=== PATIENT | female | born 1930 | race Caucasian/White ===

== ENCOUNTER 2017-04-01 13:29 | Emergency (ER) | payer MEDICARE, BC ==
[~2017-04-01] VITALS: Ht 165.1 cm; Wt 93.0 kg
[~2017-04-01 13:29] MED LIST: AMLO2.5T PO; ASPI325T PO; BENI20TA25 PO; EFFE75CA PO; LEVO.025 PO; LORTA5 PO; MONT10TA2 PO; Z.0.COMMODE-3:1; Z.0.WALKERFRONT
[2017-04-01 13:39] VITALS: BP 148/74; PULSE 91; RESP 16; TEMP 97.9; O2SAT 95
--- NOTE | 2017-04-01 13:56 | PD ---
HPI Chief Complaint: Fall Time Seen by Provider: 13:55 Travel History International Travel<30 days: No Contact w/Intl Traveler<30days: No Traveled to known affect area: No History of Present Illness HPI 86 YO F presents to the ED via EMS for evaluation after trip and fall. Patient states that she was walking down the driveway, tripped over a flagstone and landed striking her head on the flagstones. She denies loss of consciousness. On visitation she complains of facial pain around the left eye, dull headache, pain in bilateral hands and pain in the right knee. She endorses limitations to range of motion of the fingers secondary to pain. She denies nausea, vomiting, loss of strength, numbness or tingling of the extremities. She is unsure of the date of her last tetanus immunization. She does not take any blood thinners. PFSH Past Medical History Arthritis: Yes Blood Disorders: No Depression: Yes Cancer: No Cardiovascular Problems: No Diabetes: No Diminished Hearing: Yes ([place]) Endocrine: No Genitourinary: No Hepatitis: No Hiatal Hernia: Yes Hypertension: Yes Immune Disorder: No Musculoskeletal: Yes (GOUT/OSTEOARTHRITIS) Neurologic: No Psychiatric: No Reproductive: No Respiratory: No Thyroid Disease: Yes Past Surgical History Abdominal Surgery: Yes (HEMICOLECTOMY, HERNIA, DOMENIC) AICD: No Body Medical Devices: MESH IN ABD WITH TACKS Cardiac Surgery: No Cholecystectomy: Yes Ear Surgery: No Endocrine Surgery: No Eye Surgery: No Genitourinary Surgery: No Gynecologic Surgery: Yes (D AND C X2) Joint Replacement: No Oral Surgery: No Pacemaker: No Thoracic Surgery: No Social History Alcohol Use: No Tobacco Use: No Substance Use: No Allergies-Medications (Allergen,Severity, Reaction): Coded Allergies: Sulfa (Verified Allergy, Mild, Rash, 04/01/17) Reported Meds & Prescriptions Reported Meds & Active Scripts Active Ultram (Tramadol HCl) 50 Mg Tab 50 Mg PO Q8H PRN Reported Effexor XR 24 HR (Venlafaxine HCl) 75 Mg Cap 75 Mg PO DAILY Benicar (Olmesartan) 20 Mg Tab 20 Mg PO DAILY Singulair (Montelukast Sodium) 10 Mg Tab 10 Mg PO HS Levothyroxine (Levothyroxine Sodium) 25 Mcg Tab 25 Mcg PO DAILY Amlodipine (Amlodipine Besylate) 2.5 Mg Tab 2.5 Mg PO DAILY Review of Systems Except as stated in HPI: all other systems reviewed are Neg Physical Exam Exam Limitations: Other: (patient seen in the ambulance hallway, exam limited due to privacy concerns) Narrative GENERAL: Well-nourished, well-developed white female in no acute distress. SKIN: Warm and dry. 3 cm laceration lateral of the left eye. Subcentimeter superficial lacerations over the bridge of the nose. HEAD: Normocephalic. Tender ecchymosis and edema surrounding the left eye. No raccoon eyes or rangel sign. No tenderness to palpation of the skull. No bony step-offs. No malocclusion of the teeth. EYES: No scleral icterus. No injection or drainage. NECK: Supple, trachea midline. No JVD or lymphadenopathy. No midline tenderness to palpation. Patient retains full, active, painless range of motion of the neck. CARDIOVASCULAR: Regular rate and rhythm without murmurs, gallops, or rubs. 2+ radial pulses bilaterally. RESPIRATORY: Breath sounds clear and equal bilaterally. No accessory muscle use. GASTROINTESTINAL: Abdomen soft, non-tender, nondistended. + Bowel sounds MUSCULOSKELETAL: No cyanosis, or edema. Tenderness to palpation of the digits of bilateral hands, worsened with range of motion. Neurovascularly intact. Tenderness to palpation of the anterior aspect of the right knee. Positive patellar balloting. Patient is able to flex and extend the knee, but this elicits pain. NEUROLOGICAL: Awake and alert. Cranial nerves II through XII intact. Motor and sensory grossly within normal limits. 5/5 muscle strength in all muscle groups. Normal speech. BACK: Nontender without obvious deformity. No CVA tenderness. No midline tenderness. Data Data Last Documented VS Vital Signs Date Time Temp Pulse Resp B/P Pulse Ox O2 Delivery O2 Flow Rate FiO2 04/01/17 15:36 74 18 95 Room Air 04/01/17 15:31 97.9 142/[address] Brain W/O Iv Contrast(Rout) (04/01/17 14:10) Ct Cerv Spine W/O Contrast (04/01/17 14:10) Ct Facial Bones W/O Iv Cont (04/01/17 14:10) Hand, Complete ([id number]) (04/01/17 14:10) Wrist, Complete ([id number]) (04/01/17 14:10) Hand, Complete ([id number]) (04/01/17 14:10) Knee, Complete (4vws) (04/01/17 14:10) Wrist, Complete ([id number]) (04/01/17 14:10) Ice/Cold Pack (04/01/17 14:10) Tetanus/Diphtheria Tox Adult (Tetanus/Di (04/01/17 14:15) Acetamin-Hydrocod 325-7.5 Mg ([place] 7.5 (04/01/17 14:15) Splinting (04/01/17 ) MDM Medical Decision Making Medical Screen Exam Complete: Yes Emergency Medical Condition: Yes Differential Diagnosis Contusion versus laceration versus facial fracture versus ICH versus cervical fracture versus cervical subluxation versus phalangeal fracture versus wrist fracture versus knee effusion versus internal derangement of the knee versus other Narrative Course 86 YO F presents to the ED via EMS for evaluation after trip and fall. Patient states that she was walking down the driveway, tripped over a flagstone and landed striking her head on the flagstones. She denies LOC. On presentation she complains of facial pain around the left eye, dull headache, pain in bilateral hands and pain in the right knee. She is unsure of her last tetanus immunization. Vitals reviewed. Physical exam conducted in the ambulatory awake , somewhat limited by privacy issues. No focal neuro deficits. Laceration lateral to the left eye. Ecchymosis and edema surrounding the left eye. Pain in bilateral hands, worsened by flexion of the digits, neurovascularly intact. Positive right patellar balloting, range of motion preserved. Patient was administered 7.5 mg Lortab by mouth. Tetanus immunization was updated. Laceration repair was performed. Please see my procedure note for details. Radiological exam reveals an oblique fracture of the distal third of the fifth metacarpal of the left hand. Left ulnar gutter splint was applied. Patient was provided a short course of tramadol for pain greater than 6, follow-up with Dr. Osorio this week, keep the facial wound clean and dry. She indicated understanding of instructions and is agreeable to the care plan. She is stable and discharged home. Procedures Procedure Narrative LACERATION LOCATION: Lateral to the left eyebrow LENGTH: 3 cm NUMBER OF STITCHES/OCHOA: None, repaired with Dermabond REPAIR: The wound was copiously irrigated and explored without evidence of foreign body, tendon injury or neurovascular injury. The wound was closed using Dermabond. This was a single layer repair. The patient was advised to keep the dressing clean and dry. Patient tolerated the procedure well. Diagnosis Primary Impression: Facial contusion Qualified Code: S00.83XA - Facial contusion, initial encounter Additional Impressions: Metacarpal bone fracture Qualified Code: S62.357A - Closed nondisplaced fracture of shaft of fifth metacarpal bone of left hand, initial encounter Tetanus toxoid vaccination administered at current visit Referrals: Rishi Rosas MD Primary Care Physician Patient Instructions: Facial Laceration (ED), General Instructions, Hand Fracture (ED) Additional Instructions: Rest, hydrate. Elevate the extremity to relieve throbbing pain. Ultram every 6-8 hours as needed for pain greater than 6. [address] while taking Ultram. Otherwise treat with Aleve as discussed. Discontinue antidepressant while taking Ultram. Follow-up with the hand surgeon this week. Return to the ED for any urgent or emergent medical condition. Med/Other Pt SpecificInfo: Prescription(s) given Scripts Tramadol (Ultram)50 Mg Tab50 Mg PO Q8H PRN (PAIN GREATER THAN 6) #10 TAB Ref 0 Prov:Siobhan Silva DO 04/01/17 Disposition: 01 DISCHARGE HOME Condition: Stable Sophie Wahl Apr 01, 2017 13:56
[2017-04-01] MEDS ORDERED: ACETAMINOPHEN/HYDROcodone 325 MG/7.5 MG TAB PO ONE (14:15)
[2017-04-01] MEDS ORDERED: TETANUS/DIPHTHERIA TOXOID ADULT 0.5 ML VIAL IM ONE (14:15)
--- NOTE | 2017-04-01 14:51 | RADRPT ---
EXAM DATE/TIME: 04/01/2017 14:34 [facility] COMPARISON: No previous studies available for comparison. INDICATIONS : Right knee pain and swelling post fall. MEDICAL HISTORY : None. SURGICAL HISTORY : None. ENCOUNTER: Initial ACUITY: 1 day PAIN SCORE: 7/10 LOCATION: Right knee FINDINGS: Four view examination of the right knee demonstrates no evidence of fracture or dislocation. Bony mi neralization is normal. The articular surfaces are intact. The suprapatellar soft tissues have a no rmal configuration. CONCLUSION: Unremarkable examination of the right knee except for soft tissue calcifications suggesting CPPD. Marcial Ellis MD on April 01, 2017 at 14:48 Board Certified Radiologist. This report was verified electronically.
--- NOTE | 2017-04-01 14:53 | RADRPT ---
EXAM DATE/TIME: 04/01/2017 14:31 [facility] COMPARISON: No previous studies available for comparison. INDICATIONS : Left hand pain and swelling post fall. MEDICAL HISTORY : None. SURGICAL HISTORY : None. ENCOUNTER: Initial ACUITY: 1 day PAIN SCORE: 7/10 LOCATION: Left upper extremity FINDINGS: Three view examination of the left hand demonstrates the patient is an oblique fracture of the fifth metacarpal shaft. There's been a proximal row carpectomy and. MCP joints are unremarkable.. CONCLUSION: Oblique fracture of the fifth metacarpal shaft Marcial Ellis MD on April 01, 2017 at 14:51 Board Certified Radiologist. This report was verified electronically.
--- NOTE | 2017-04-01 14:55 | RADRPT ---
EXAM DATE/TIME: 04/01/2017 14:31 [facility] COMPARISON: No previous studies available for comparison. INDICATIONS : Pain left wrist post fall. MEDICAL HISTORY : None. SURGICAL HISTORY : None. ENCOUNTER: Initial ACUITY: 1 day PAIN SCORE: 7/10 LOCATION: Left upper extremity FINDINGS: Three view examination of the left wrist demonstrates the patient's had a proximal row carpectomy. Th e capitate articulates with the radius with expecting subchondral sclerosis. Patient has a known fift h metacarpal shaft fracture. CONCLUSION: Unremarkable examination of the left wrist s/p proximal row carpectomy. Known 5th metacarpal fractur e. Marcial Ellis MD on April 01, 2017 at 14:52 Board Certified Radiologist. This report was verified electronically.
--- NOTE | 2017-04-01 15:09 | RADRPT ---
EXAM DATE/TIME: 04/01/2017 14:49 [facility] COMPARISON: No previous studies available for comparison. INDICATIONS : Trauma, fall today. RADIATION DOSE: 56.35 CTDIvol (mGy) MEDICAL HISTORY : None SURGICAL HISTORY : None. ENCOUNTER: Initial ACUITY: 1 day PAIN SCALE: 4/10 LOCATION: cranial TECHNIQUE: Multiple contiguous axial images were obtained of the head. Using automated exposure control and adj ustment of the mA and/or kV according to patient size, radiation dose was kept as low as reasonably a chievable to obtain optimal diagnostic quality images. DICOM format image data is available electro nically for review and comparison. FINDINGS: CEREBRUM: The ventricles are normal for age. Scattered areas of low attenuation throughout the white matter. N o evidence of midline shift, mass lesion, hemorrhage or acute infarction. No extra-axial fluid colle ctions are seen. POSTERIOR FOSSA: The cerebellum and brainstem are intact. The 4th ventricle is midline. The cerebellopontine angle i s unremarkable. EXTRACRANIAL: The visualized portion of the orbits is intact. SKULL: The calvaria is intact. No evidence of skull fracture. CONCLUSION: 1. Chronic ischemic small vessel vasculopathy. 2. No acute intracranial other malady. Gerardo Matthews MD on April 01, 2017 at 15:06 Board Certified Radiologist. This report was verified electronically.
--- NOTE | 2017-04-01 15:16 | RADRPT ---
EXAM DATE/TIME: 04/01/2017 14:31 [facility] COMPARISON: No previous studies available for comparison. INDICATIONS : Trauma. MEDICAL HISTORY : None. SURGICAL HISTORY : None. ENCOUNTER: Initial ACUITY: 1 day PAIN SCORE: 7/10 LOCATION: Right upper extremity FINDINGS: Three-view right wrist demonstrates there is a prominent cyst in the lunate. There is marked osteoart hritis of the radiocarpal and the first carpometacarpal joint. There is chondrocalcinosis. Metacarp al bases are intact. CONCLUSION: Prominent cyst in the lunate. Marked chondrocalcinosis. Marcial Ellis MD on April 01, 2017 at 15:09 Board Certified Radiologist. This report was verified electronically.
--- NOTE | 2017-04-01 15:20 | RADRPT ---
EXAM DATE/TIME: 04/01/2017 14:31 [facility] COMPARISON: No previous studies available for comparison. INDICATIONS : Fall, trauma. MEDICAL HISTORY : None. SURGICAL HISTORY : None. ENCOUNTER: Initial ACUITY: 1 day PAIN SCORE: 8/10 LOCATION: Right upper extremity FINDINGS: Three-view right wrist demonstrates there is some chondrocalcinosis consistent with CPPD. There is no acute fracture. There is a prominent cyst in the lunate. There is no evidence of an acute fracture . No lytic or blastic lesions identified. CONCLUSION: No evidence of an acute fracture. CPPD change. Prominent cyst in the lunate. Marcial Ellis MD on April 01, 2017 at 15:05 Board Certified Radiologist. This report was verified electronically.
[2017-04-01 15:31] VITALS: BP 142/71; PULSE 82; RESP 18; TEMP 97.9; O2SAT 95
--- NOTE | 2017-04-01 15:32 | RADRPT ---
EXAM DATE/TIME: 04/01/2017 14:51 [facility] COMPARISON: No previous studies available for comparison. INDICATIONS : Trauma, trip and fall. Left sided facial bone. RADIATION DOSE: 21.96 CTDIvol (mGy) MEDICAL HISTORY : None SURGICAL HISTORY : None. ENCOUNTER: Initial ACUITY: 1 day PAIN SCORE: 6/10 LOCATION: Left facial TECHNIQUE: Volumetric scanning of the facial bones was performed. Using automated exposure control and adjustme nt of the mA and/or kV according to patient size, radiation dose was kept as low as reasonably achiev able to obtain optimal diagnostic quality images. DICOM format image data is available electronicall y for review and comparison. FINDINGS: ORBITS: The orbital and infraorbital osseous structures are intact. The retroconal structures have a normal configuration. No radiopaque foreign bodies are seen. Bilateral lens surgery. NASAL BONE: The nasal bone and maxillary spine are intact ZYGOMATIC ARCHES: Symmetric without evidence of fracture. SINUSES: The maxillary, ethmoid and frontal sinuses are intact. No air-fluid levels seen. NASAL CAVITY: The nasal septum is intact and midline. The lacrimal ducts are intact. SOFT TISSUES: No radiopaque foreign bodies seen. Soft tissue swelling in the left infraorbital region without evide nce of underlying fracture. INTRACRANIAL: No intracranial air seen. CRIBIFORM PLATE: Grossly intact. CONCLUSION: Normal examination except for left infraorbital swelling. Marcial Ellis MD on April 01, 2017 at 15:28 Board Certified Radiologist. This report was verified electronically.
--- NOTE | 2017-04-01 15:33 | RADRPT ---
EXAM DATE/TIME: 04/01/2017 14:50 [facility] COMPARISON: No previous studies available for comparison. INDICATIONS : Neck pain. RADIATION DOSE: 26.47 CTDIvol (mGy) MEDICAL HISTORY : None SURGICAL HISTORY : None. ENCOUNTER: Initial ACUITY: 1 day PAIN SCALE: 5/10 LOCATION: Neck TECHNIQUE: Volumetric scanning of the cervical spine was performed. Multiplanar reconstructions in the sagittal, coronal and oblique axial planes were performed. Using automated exposure control and adjustment o f the mA and/or kV according to patient size, radiation dose was kept as low as reasonably achievable to obtain optimal diagnostic quality images. DICOM format image data is available electronically f or review and comparison. FINDINGS: Noncontrast CT scan demonstrates there is moderate intervertebral disc space narrowing at the C3-4, C 5-6 and C6-7 levels. No endplate fracture is identified. The dens is intact. Coronal images show no evidence of an endplate fracture. Degenerative facet disease lower cervical s pine. Some calcifications of the nuchal ligament. Axial images fail to demonstrate any evidence of a fracture. Cord is normal in shape. CONCLUSION: Unremarkable cervical spine. No evidence of a cervical spine fracture. Degenerative disc disease multiple levels with narrowing but no acute fracture. Marcial Ellis MD on April 01, 2017 at 15:27 Board Certified Radiologist. This report was verified electronically.
[2017-04-01] MEDS ORDERED: VENL75XR PO (15:50)
[2017-04-01] MEDS ORDERED: BENI20TA5 PO (15:50)
[2017-04-01] MEDS ORDERED: AMLO2.5T PO (15:50)
[2017-04-01] MEDS ORDERED: LEVO25TA4 PO (15:50)
[2017-04-01] MEDS ORDERED: MONT10TA2 PO (15:50)
[2017-04-01] MEDS ORDERED: ULTR50TA5 PO (16:24)
== END 2017-04-01 17:35 | disposition home or self-care (01) ==
LOC: NEPC 13:29
DX: S01.81XA Laceration without foreign body of other part of head, initial encounter (principal); S00.83XA Contusion of other part of head, initial encounter; S62.357A Nondisplaced fracture of shaft of fifth metacarpal bone, left hand, initial encounter for closed fracture; M79.641 Pain in right hand; M25.561 Pain in right knee; I10 Essential (primary) hypertension; E07.9 Disorder of thyroid, unspecified; W01.198A Fall on same level from slipping, tripping and stumbling with subsequent striking against other object, initial encounter; Y93.01 Activity, walking, marching and hiking; Z23 Encounter for immunization; Z87.39 Personal history of other diseases of the musculoskeletal system and connective tissue; Z86.59 Personal history of other mental and behavioral disorders
CPT/HCPCS: 70450; 70486; 72125; 73110; 73130; 73564; 90471; 90714

== ENCOUNTER → 2017-09-30 | Outpatient (CLI) | payer MEDICARE, BC ==
[~2017-09-30] MED LIST changes: -ASPI325T PO; -BENI20TA25 PO; -EFFE75CA PO; -LEVO.025 PO; +LEVO25TA4 PO; -LORTA5 PO; +OLME1TAB PO; +TRAM50 PO; +VENL75XR PO; -Z.0.COMMODE-3:1; -Z.0.WALKERFRONT
[2017-09-30 11:49] LABS: AUTOMATED NEUTROPHIL # 3.2 TH/MM3 (1.8-7.7); BASOPHIL % 0.9 % (0.0-2.0); EOSINOPHIL # 0.2 TH/MM3 (0-0.4); EOSINOPHIL % 3.1 % (0.0-4.0); LYMPH % 26.8 % (9.0-44.0); LYMPHOCYTE # 1.4 TH/MM3 (1.0-4.8); MEAN CELL VOLUME 96.8 FL (80.0-100.0); MEAN PLATELET VOLUME 8.2 FL (7.0-11.0); MONO % 8.7 % (0.0-8.0); MONOCYTE # 0.5 TH/MM3 (0-0.9); NEUT % 60.5 % (16.0-70.0); PLATELET COUNT 250 TH/MM3 (150-450); RED BLOOD COUNT 3.72 MIL/MM3 (4.00-5.30); RED CELL DISTRIBUTION WIDTH 13.2 % (11.6-17.2); WHITE BLOOD COUNT 5.4 TH/MM3 (4.0-11.0)
[2017-09-30 12:04] LABS: MEAN CORPUSCULAR HGB CONC 36.1 % (32.0-36.0)
[2017-09-30 12:11] LABS: BICARBONATE 29.1 MEQ/L (21.0-32.0); CALCIUM 9.1 MG/DL (8.5-10.1); CREATININE 0.92 MG/DL (0.50-1.00); PROTHROMBIN TIME - PATIENT 9.8 SEC (9.8-11.6)
--- NOTE | 2017-09-30 12:47 | RADRPT ---
EXAM DATE/TIME: 09/30/2017 12:14 [facility] COMPARISON: CHEST PA & LAT, November 27, 2015, 12:40. INDICATIONS : Evaluate for pneumonia, pneumothorax and communicable diseases. Pre-op knee surgery MEDICAL HISTORY : None. SURGICAL HISTORY : None. ENCOUNTER: Initial ACUITY: 1 day PAIN SCORE: 0/10 LOCATION: chest FINDINGS: PA and lateral views of the chest demonstrate the lungs to be symmetrically aerated without evidence of mass, infiltrate or effusion. The cardiomediastinal contours are unremarkable. Osseous structure s are intact with mild scoliosis. Atherosclerotic changes are present in the aorta. CONCLUSION: No acute disease. Ryan Ghotra MD on September 30, 2017 at 12:44 Board Certified Radiologist. This report was verified electronically.
[2017-09-30 12:57] LABS: BACTERIA, URINE OCC /hpf; BILIRUBIN, URINE NEG (NEG); BLOOD, URINE NEG (NEG); GLUCOSE,URINE NEG (NEG); KETONE, URINE NEG (NEG); MUCUS URINE FEW /lpf (OCC); NITRITE,URINE NEG (NEG); SQUAMOUS EPITHELIAL CELL URINE 2 /hpf (0-5); URINE COLOR YELLOW (YELLW/STRAW); URINE LEUKOCYTE ESTERASE LARGE (NEG)
--- NOTE | 2017-09-30 18:58 | EKG ---
Date Performed: 09/30/2017 Time Performed: 11:09:08 PTAGE: 87 years EKG: Sinus rhythm Left axis deviation Borderline ECG PREVIOUS TRACING : 11/27/2015 11.03 Since previous tracing, no significant change noted DOCTOR: Mikal Garcia Interpretating Date/Time 09/30/2017 18:57:21
== END ==
LOC: CPRE 10:23
PROVIDERS: ATTEND Orthopaedic Surgery
DX: Z01.812 Encounter for preprocedural laboratory examination (principal); Z01.810 Encounter for preprocedural cardiovascular examination; Z01.811 Encounter for preprocedural respiratory examination; S83.281D Other tear of lateral meniscus, current injury, right knee, subsequent encounter; R94.31 Abnormal electrocardiogram [ECG] [EKG]; R82.99 Other abnormal findings in urine; X58.XXXD Exposure to other specified factors, subsequent encounter
CPT/HCPCS: 36415; 71046; 80048; 81001; 85025; 85610; 87086; 93005

== ENCOUNTER → 2017-11-24 | Outpatient (CLI) | payer MEDICARE, BC ==
[~2017-11-24] MED LIST changes: -TRAM50 PO
[2017-11-24 11:59] LABS: AUTOMATED NEUTROPHIL # 3.2 TH/MM3 (1.8-7.7); BASOPHIL % 0.9 % (0.0-2.0); EOSINOPHIL # 0.2 TH/MM3 (0-0.4); EOSINOPHIL % 3.1 % (0.0-4.0); HEMATOCRIT 37.8 % (35.0-46.0); HEMOGLOBIN 12.7 GM/DL (11.6-15.3); LYMPH % 27.4 % (9.0-44.0); LYMPHOCYTE # 1.4 TH/MM3 (1.0-4.8); MEAN CELL VOLUME 96.9 FL (80.0-100.0); MEAN CORPUSCULAR HEMOGLOBIN 32.5 PG (27.0-34.0); MEAN CORPUSCULAR HGB CONC 33.5 % (32.0-36.0); MONO % 8.5 % (0.0-8.0); MONOCYTE # 0.4 TH/MM3 (0-0.9); NEUT % 60.1 % (16.0-70.0); PLATELET COUNT 247 TH/MM3 (150-450); RED CELL DISTRIBUTION WIDTH 12.8 % (11.6-17.2); WHITE BLOOD COUNT 5.3 TH/MM3 (4.0-11.0)
[2017-11-24 12:06] LABS: PROTHROMBIN TIME - PATIENT 9.8 SEC (9.8-11.6)
[2017-11-24 12:39] LABS: BICARBONATE 26.6 MEQ/L (21.0-32.0); CALCIUM 8.7 MG/DL (8.5-10.1); CREATININE 0.85 MG/DL (0.50-1.00)
[2017-11-24 12:54] LABS: BACTERIA, URINE RARE /hpf; BILIRUBIN, URINE NEG (NEG); BLOOD, URINE NEG (NEG); GLUCOSE,URINE NEG (NEG); KETONE, URINE NEG (NEG); NITRITE,URINE NEG (NEG); SQUAMOUS EPITHELIAL CELL URINE 1 /hpf (0-5); URINE COLOR YELLOW (YELLW/STRAW); URINE LEUKOCYTE ESTERASE SMALL (NEG)
== END ==
LOC: CPRE 10:11
PROVIDERS: ATTEND Orthopaedic Surgery
DX: Z01.812 Encounter for preprocedural laboratory examination (principal); S83.281D Other tear of lateral meniscus, current injury, right knee, subsequent encounter
CPT/HCPCS: 36415; 80048; 81001; 85025; 85610